=== PATIENT | female | born 1965 | race Caucasian/White ===

== ENCOUNTER 2018-12-01 17:52 | Inpatient (IN) | payer OTHER ==
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
[2018-12-01] MEDS ORDERED: SODIUM CHLORIDE 0.9% 500 ML INFUS.BAG IV ONE (20:02)
[2018-12-01 20:19] LABS: BASO % 1.2 % (0-2.0); EOS % 1.6 % (0-4.5); HEMATOCRIT 39.9 % (32.4-45.2); HEMOGLOBIN 14.3 GM/dL (10.7-15.3); LYMPH % 22.1 % (8-40); MCH 33.6 pg (25.7-33.7); MCHC 35.8 g/dl (32.0-36.0); MEAN CELL VOLUME 93.8 fl (80-96); MEAN PLT VOLUME 8.6 fl (7.5-11.1); MONO % 7.7 % (3.8-10.2); NEUT % 67.4 % (42.8-82.8); PLATELET COUNT 266 K/MM3 (134-434); RBC 4.26 M/mm3 (3.60-5.2); RDW 12.7 % (11.6-15.6); WHITE BLOOD COUNT 9.7 K/mm3 (4.0-10.0)
[2018-12-01 20:40] LABS: INR 0.97 (0.83-1.09); PROTHROMBIN TIME (PATIENT) 11.5 SEC (9.7-13.0)
[2018-12-01 20:42] LABS: ACTIVATED PTT 36.3 SECONDS (25.2-36.5)
[2018-12-01 21:50] LABS: ALK PHOS 75 U/L (45-117); ANION GAP 9 MMOL/L (8-16); BILIRUBIN,TOTAL 0.3 mg/dL (0.2-1); BLOOD UREA NITROGEN 12 mg/dL (7-18); CALCIUM 8.7 mg/dL (8.5-10.1); CHLORIDE 103 mmol/L (98-107); CO2 29 mmol/L (21-32); CREATININE 0.8 mg/dL (0.55-1.3); GLUCOSE,RANDOM 138 mg/dL (74-106); POTASSIUM 3.5 mmol/L (3.5-5.1); SGOT/AST 15 U/L (15-37); SGPT/ALT 22 U/L (13-61); SODIUM 142 mmol/L (136-145); TOT PROT 7.2 g/dl (6.4-8.2)
--- NOTE | 2018-12-02 00:30 | HP ---
Admitting History and Physical - Admission Chief Complaint: back pain History of Present Illness: this is a 53 y/o female patient with hx of HTN, DL, NIDDM, presented to the hospital with back pain that is reproducible with palpiation - patient stated that she has had the pain before but this is the worst she has ever had, she follows up with a doctor as an outpatient for which she was supposed to get more studies to evaluate the patient's pain. she stated that the pain is positional that she cannot move her arm without having having the pain. she feels the pain down her shoulder as well, she stated that she has swollen back recently. besides that the patient is doing well. denied any fever, chills, chest pain, WALLS, SOB, palpitations, any recent illness - diarrhea, cold or flu. translation was done with Kristyn Rudd RN - ED History Source: Patient, Family Member Limitations to Obtaining History: No Limitations - Smoking History Smoking history: Never smoked - Alcohol/Substance Use Hx Alcohol Use: No Home Medications - Allergies Allergies/Adverse Reactions: Allergies Allergy/AdvReac Type Severity Reaction Status Date / Time meperidine HCl [From Demerol] Allergy Verified 12/01/18 18:12 - Home Medications Home Medications: Ambulatory Orders Aspirin [ASA -] 81 mg PO DAILY 12/02/18 Benazepril/Hydrochlorothiazide [Benazepril-Hctz 20-25 mg Tab] 1 each PO DAILY Glipizide [Glucotrol -] 10 mg PO DAILY 12/02/18 Meclizine HCl [Antivert -] 25 mg PO PRN PRN 12/02/18 Metformin HCl [Glucophage] 1,000 mg PO BID 12/02/18 Rosuvastatin [Crestor -] 40 mg PO DAILY 12/02/18 Review of Systems - Review of Systems Constitutional: reports: No Symptoms Eyes: reports: No Symptoms HENT: reports: No Symptoms Neck: reports: No Symptoms Cardiovascular: reports: No Symptoms Respiratory: reports: No Symptoms Gastrointestinal: reports: No Symptoms Genitourinary: reports: No Symptoms Musculoskeletal: reports: Back Pain Integumentary: reports: No Symptoms Neurological: reports: No Symptoms Endocrine: reports: No Symptoms Hematology/Lymphatic: reports: No Symptoms Physical Examination Vital Signs: Vital Signs Temperature 98.5 F 12/01/18 18:13 Pulse Rate 111 H 12/01/18 18:13 Respiratory Rate 20 12/01/18 18:13 Blood Pressure 136/80 12/01/18 18:13 O2 Sat by Pulse Oximetry (%) 100 12/01/18 18:13 Constitutional: Yes: Well Nourished, No Distress, Calm, Obese Eyes: Yes: WNL, Conjunctiva Clear, EOM Intact HENT: Yes: WNL, Atraumatic, Normocephalic Neck: Yes: WNL, Supple, Trachea Midline Cardiovascular: Yes: WNL, Regular Rate and Rhythm, S1, S2 Respiratory: Yes: WNL, Regular, CTA Bilaterally Gastrointestinal: Yes: WNL, Normal Bowel Sounds, Soft Musculoskeletal: Yes: Back Pain, Muscle Pain, Other (tenderness to touch on the right shoulder) Extremities: Yes: WNL Edema: No Peripheral Pulses WNL: Yes Integumentary: Yes: WNL Neurological: Yes: WNL, Alert, Oriented ...Motor Strength: WNL Psychiatric: Yes: WNL, Alert, Oriented Labs: CBC, BMP 12/01/18 20:10 12/01/18 20:50 Imaging - Results X-ray: Image Reviewed Cat Scan: Image Reviewed EKG: Image Reviewed Problem List - Problems (1) Diabetes type 2, controlled Assessment/Plan: hold PO home medication start insulin sliding scale diabetic diet obtain A1c Code(s): E11.9 - TYPE 2 DIABETES MELLITUS WITHOUT COMPLICATIONS Qualifiers: Diabetes mellitus terminal press operator insulin use: without mcfp use Diabetes mellitus complication status: without complication Qualified Code(s): E11.9 - Type 2 diabetes mellitus without complications (2) Dyslipidemia (high LDL; low HDL) Assessment/Plan: c/w atorvastatin obtain Lipid profile Code(s): E78.5 - HYPERLIPIDEMIA, UNSPECIFIED (3) HTN (hypertension), benign Assessment/Plan: c/w aceI c/w HCTZ Code(s): I10 - ESSENTIAL (PRIMARY) HYPERTENSION (4) Back pain Assessment/Plan: chronic on acute back pain - admit to med surg pain control - toradol 30mg stat then toradol 10mg q8hrs tramadol 50mg q12hrs prn for sever pain neurology evaluation pantaprezole 40mg daily for GI prophylaxis Code(s): M54.9 - DORSALGIA, UNSPECIFIED Qualifiers: Back pain location: low back pain Chronicity: acute Back pain laterality : right Sciatica presence: with sciatica Sciatica laterality: sciatica of right side Qualified Code(s): M54.41 - Lumbago with sciatica, right side (5) Sinus tachycardia by electrocardiogram Assessment/Plan: can be 2/2 to pain vs dehydration will manage the pain if the HR is still not controlled consider starting the patient on metoprolol 50mg twice a day Code(s): R00.0 - TACHYCARDIA, UNSPECIFIED
[2018-12-02] MEDS ORDERED: MECLIZINE HCL 25 MG TABLET (FP) PO PRN (00:40)
[2018-12-02] MEDS ORDERED: HYDROCHLOROTHIAZIDE 25 MG TABLET (FP) PO ONE (00:43)
[2018-12-02] MEDS ORDERED: KETOROLAC TROMETHAMINE 15 MG/ML VIAL IVPB ONE (00:45)
[2018-12-02 01:54] VITALS: BMI 27.7
[2018-12-02] MEDS ORDERED: KETOROLAC TROMETHAMINE 10 MG TABLET PO SCH (06:00)
[2018-12-02] MEDS: INSULIN SLIDING SCALE (NOVOLOG) 1 VIAL SQ SCH ×3 (07:04→16:25)
[2018-12-02] MEDS ORDERED: PT OWN MED DRAWER 7, Y5N ONE (09:28)
[2018-12-02] MEDS: ASPIRIN 81 MG CHEWABLE TABLETS PO SCH (09:36)
[2018-12-02] MEDS: PANTOPRAZOLE 40 MG TABLET (FP) PO SCH (09:36)
[2018-12-02] MEDS: ENOXAPARIN NA (PORCINE) 40 MG/0.4 ML DISP.SYRIN SQ SCH (09:36)
[2018-12-02] MEDS ORDERED: traMADol HCL 50 MG TABLET PO SCH (10:00)
[2018-12-02] MEDS ORDERED: ACETAMINOPHEN 325 MG TABLET (FP) PO PRN (11:18)
[2018-12-02] MEDS ORDERED: traMADol HCL 50 MG TABLET PO PRN (11:19)
[2018-12-02] MEDS ORDERED: KETOROLAC TROMETHAMINE 10 MG TABLET PO PRN (11:19)
[2018-12-02] MEDS: RAMIPRIL 5 MG CAPSULE (FP) PO SCH (11:20)
--- NOTE | 2018-12-02 13:09 | EKG ---
Test Reason : Blood Pressure : / mmHG Vent. Rate : 105 BPM Atrial Rate : 105 BPM P-R Int : 172 ms QRS Dur : 078 ms QT Int : 348 ms P-R-T Axes : 050 055 043 degrees QTc Int : 459 ms SINUS TACHYCARDIA NO PREVIOUS ECGS AVAILABLE Confirmed by MASSIEL PEREZ MD ([id number]) on 12/02/2018 1:09:42 PM Referred By: Confirmed By:MASSIEL PEREZ MD
--- NOTE | 2018-12-02 13:20 | PN ---
Physical Exam: SUBJECTIVE: Patient seen and examined. Back pain is improving. She reports weakness in both legs without numbness. OBJECTIVE: Vital Signs Period Temp Pulse Resp BP Sys/Partida Pulse Ox Last 24 Hr 97.9 F-98.6 F 87-111 18-20 118-140/65-95 96-100 GENERAL: The patient is awake, alert, and fully oriented, in no acute distress. LUNGS: Breath sounds equal, clear to auscultation bilaterally, no wheezes, no crackles, no accessory muscle use. HEART: Regular rate and rhythm, S1, S2 without murmur, rub or gallop. ABDOMEN: Soft, nontender, nondistended, normoactive bowel sounds, no guarding, no rebound, no hepatosplenomegaly, no masses. EXTREMITIES: 2+ pulses, warm, well-perfused, no edema. BACK: No spinal, paraspinal tenderness. NEUROLOGICAL: Strength 5/5 in all extremities. Sensation intact. DTRs 2+. Laboratory Results - last 24 hr 12/01/18 12/01/18 12/01/18 20:10 20:10 20:10 WBC 9.7 RBC 4.26 Hgb 14.3 Hct 39.9 MCV 93.8 MCH 33.6 MCHC 35.8 RDW 12.7 Plt Count 266 MPV 8.6 Absolute Neuts (auto) 6.6 Neutrophils % 67.4 Lymphocytes % 22.1 Monocytes % 7.7 Eosinophils % 1.6 Basophils % 1.2 Nucleated RBC % 0 PT with INR 11.50 INR 0.97 PTT (Actin FS) 36.3 D-Dimer Sodium Cancelled Potassium Cancelled Chloride Cancelled Carbon Dioxide Cancelled Anion Gap Cancelled BUN Cancelled Creatinine Cancelled Creat Clearance w eGFR Cancelled POC Glucometer Random Glucose Cancelled Calcium Cancelled Total Bilirubin Cancelled AST Cancelled ALT Cancelled Alkaline Phosphatase Cancelled Creatine Kinase Cancelled Creatine Kinase Index CK-MB (CK-2) Troponin I Cancelled Total Protein Cancelled Albumin Cancelled 12/01/18 12/01/18 12/01/18 20:10 20:50 20:50 WBC RBC Hgb Hct MCV MCH MCHC RDW Plt Count MPV Absolute Neuts (auto) Neutrophils % Lymphocytes % Monocytes % Eosinophils % Basophils % Nucleated RBC % PT with INR INR PTT (Actin FS) D-Dimer Cancelled Sodium 142 Potassium 3.5 Chloride 103 Carbon Dioxide 29 Anion Gap 9 BUN 12 Creatinine 0.8 Creat Clearance w eGFR > 60 POC Glucometer Random Glucose 138 H Calcium 8.7 Total Bilirubin 0.3 AST 15 ALT 22 Alkaline Phosphatase 75 Creatine Kinase 262 H Creatine Kinase Index 0.3 CK-MB (CK-2) < 1.0 Troponin I < 0.02 Total Protein 7.2 Albumin 4.0 12/01/18 12/02/18 12/02/18 20:50 06:58 11:23 WBC RBC Hgb Hct MCV MCH MCHC RDW Plt Count MPV Absolute Neuts (auto) Neutrophils % Lymphocytes % Monocytes % Eosinophils % Basophils % Nucleated RBC % PT with INR INR PTT (Actin FS) D-Dimer 273 Sodium Potassium Chloride Carbon Dioxide Anion Gap BUN Creatinine Creat Clearance w eGFR POC Glucometer 120 148 Random Glucose Calcium Total Bilirubin AST ALT Alkaline Phosphatase Creatine Kinase Creatine Kinase Index CK-MB (CK-2) Troponin I Total Protein Albumin Active Medications Generic Name Dose Route Start Last Admin Trade Name Freq PRN Reason Stop Dose Admin Acetaminophen 650 mg 12/02/18 11:18 Tylenol - PO Q4H PRN PAIN LEVEL 1 - 3 Aspirin 81 mg 12/02/18 10:00 12/02/18 09:36 Asa - PO 81 mg DAILY EASTON Administration Enoxaparin Sodium 40 mg 12/02/18 10:00 12/02/18 09:36 Lovenox - SQ 40 mg DAILY EASTON Administration Insulin Aspart 1 vial 12/02/18 07:00 12/02/18 11:25 Novolog Vial Sliding Scale - SQ Not Given TIDAC [facility] Protocol Ketorolac Tromethamine 10 mg 12/02/18 11:19 Toradol PO 12/07/18 11:59 Q6HPO PRN PAIN LEVEL 4 - 6 Meclizine HCl 25 mg 12/02/18 00:40 Antivert - PO PRN PRN VERTIGO Pantoprazole Sodium 40 mg 12/02/18 10:00 12/02/18 09:36 Protonix - PO 40 mg DAILY EASTON Administration Ramipril 5 mg 12/02/18 10:00 12/02/18 11:20 Altace - PO 5 mg DAILY EASTON Administration Rosuvastatin Calcium 40 mg 12/02/18 22:00 Crestor - PO HS EASTON Tramadol HCl 50 mg 12/02/18 11:19 Ultram - PO Q6H PRN PAIN LEVEL 7 - 10 ASSESSMENT/PLAN: This is a 53 year old woman with a history of HTN, hyperlipidemia, type 2 DM, chronic back pain who presented to the ED with increased back pain. 1. Acute on chronic back pain with leg weakness, elevated CK - Pain is improving - Continue Toradol/Tramadol as needed - Repeat CK - Check ESR, C-RP, SANDHYA, RF - Physical therapy 2. HTN - Continue Altace, HCTZ 3. Hyperlipidemia - Continue Crestor 4. Type 2 DM - Metformin, glipizide held - Continue Novolog sliding scale 5. Moderate pericardial effusion on CT - Echocardiogram - Check SANDHYA, ESR, C-RP Visit type - Emergency Visit Emergency Visit: Yes ED Registration Date: 12/02/18 Care time: The patient presented to the Emergency Department on the above date and was hospitalized for further evaluation of their emergent condition. - New Patient This patient is new to me today: Yes Date on this admission: 12/02/18 - Critical Care Critical Care patient: No - Discharge Referral Referred to [facility] Med P.C.: No
[2018-12-02] MEDS: ROSUVASTATIN CA 20 MG TABLET (FP) PO SCH (21:44)
[2018-12-03] MEDS: INSULIN SLIDING SCALE (NOVOLOG) 1 VIAL SQ SCH ×3 (06:27→16:36)
[2018-12-03 09:06] LABS: BASO % 0.5 % (0-2.0); EOS % 3.6 % (0-4.5); HEMATOCRIT 36.6 % (32.4-45.2); HEMOGLOBIN 12.9 GM/dL (10.7-15.3); LYMPH % 27.9 % (8-40); MCH 32.8 pg (25.7-33.7); MCHC 35.3 g/dl (32.0-36.0); MEAN CELL VOLUME 93.1 fl (80-96); MEAN PLT VOLUME 8.7 fl (7.5-11.1); MONO % 8.5 % (3.8-10.2); NEUT % 59.5 % (42.8-82.8); PLATELET COUNT 243 K/MM3 (134-434); RBC 3.93 M/mm3 (3.60-5.2); RDW 12.6 % (11.6-15.6); WHITE BLOOD COUNT 5.8 K/mm3 (4.0-10.0)
[2018-12-03 09:11] LABS: ALBUMIN 3.4 g/dl (3.4-5.0); ALK PHOS 67 U/L (45-117); ANION GAP 5 MMOL/L (8-16); BILIRUBIN,TOTAL 0.5 mg/dL (0.2-1); BLOOD UREA NITROGEN 11 mg/dL (7-18); CALCIUM 8.3 mg/dL (8.5-10.1); CHLORIDE 106 mmol/L (98-107); CO2 30 mmol/L (21-32); CREATININE 0.7 mg/dL (0.55-1.3); GLUCOSE,RANDOM 119 mg/dL (74-106); MAGNESIUM 2.1 mg/dL (1.8-2.4); PHOSPHOROUS 3.9 mg/dL (2.5-4.9); POTASSIUM 3.7 mmol/L (3.5-5.1); SGOT/AST 11 U/L (15-37); SGPT/ALT 17 U/L (13-61); SODIUM 142 mmol/L (136-145); TOT PROT 6.7 g/dl (6.4-8.2)
[2018-12-03] MEDS ORDERED: PT OWN MED DRAWER 7, Y5N ONE (09:13)
[2018-12-03] MEDS: HYDROCHLOROTHIAZIDE 25 MG TABLET (FP) PO SCH (09:25)
[2018-12-03] MEDS: PANTOPRAZOLE 40 MG TABLET (FP) PO SCH (09:25)
[2018-12-03] MEDS: ASPIRIN 81 MG CHEWABLE TABLETS PO SCH (09:25)
[2018-12-03] MEDS: ENOXAPARIN NA (PORCINE) 40 MG/0.4 ML DISP.SYRIN SQ SCH (09:25)
[2018-12-03] MEDS: RAMIPRIL 5 MG CAPSULE (FP) PO SCH (09:25)
[2018-12-03 10:23] LABS: INR 1.07 (0.83-1.09); PROTHROMBIN TIME (PATIENT) 12.6 SEC (9.7-13.0)
[2018-12-03 10:26] LABS: ACTIVATED PTT 31.8 SECONDS (25.2-36.5)
--- NOTE | 2018-12-03 11:26 | PN ---
Physical Exam: SUBJECTIVE: Patient seen and examined this AM. Limited by language barrier but able to briefly interview patient who states that her pain is much better and fluctuating between a 2 and a 3 out of 10. OBJECTIVE: Vital Signs Period Temp Pulse Resp BP Sys/Partida Pulse Ox Last 24 Hr 97.5 F-98.4 F 84-109 18-20 103-129/63-85 98 GENERAL: A&O, no acute distress HEAD: Normocephalic, atraumatic. EYES: no scleral icterus EARS, NOSE, THROAT: oropharynx clear without exudates. Moist mucous membranes. LUNGS: CTA b/l, no crackles or wheezes HEART: Regular rate and rhythm, normal S1 and S2 without murmur ABDOMEN: Soft, nontender to palpation, normoactive bowel sounds MUSCULOSKELETAL: Minimal tenderness to palpation in lower back musculature EXTREMITIES: warm, well-perfused. No peripheral edema. Laboratory Results - last 24 hr 12/02/18 12/02/18 12/03/18 11:23 16:23 06:00 WBC 5.8 RBC 3.93 Hgb 12.9 Hct 36.6 MCV 93.1 MCH 32.8 MCHC 35.3 RDW 12.6 Plt Count 243 MPV 8.7 Absolute Neuts (auto) 3.5 Neutrophils % 59.5 Lymphocytes % 27.9 D Monocytes % 8.5 Eosinophils % 3.6 D Basophils % 0.5 Nucleated RBC % 0 ESR PT with INR INR PTT (Actin FS) Sodium Potassium Chloride Carbon Dioxide Anion Gap BUN Creatinine Creat Clearance w eGFR POC Glucometer 148 148 Random Glucose Calcium Phosphorus Magnesium Total Bilirubin AST ALT Alkaline Phosphatase Creatine Kinase C-Reactive Protein Total Protein Albumin 12/03/18 12/03/18 12/03/18 06:00 06:00 06:26 WBC RBC Hgb Hct MCV MCH MCHC RDW Plt Count MPV Absolute Neuts (auto) Neutrophils % Lymphocytes % Monocytes % Eosinophils % Basophils % Nucleated RBC % ESR 12 PT with INR INR PTT (Actin FS) Sodium 142 Potassium 3.7 Chloride 106 Carbon Dioxide 30 Anion Gap 5 L BUN 11 Creatinine 0.7 Creat Clearance w eGFR > 60 POC Glucometer 128 Random Glucose 119 H Calcium 8.3 L Phosphorus 3.9 Magnesium 2.1 Total Bilirubin 0.5 AST 11 L ALT 17 Alkaline Phosphatase 67 Creatine Kinase 100 C-Reactive Protein 0.4 H Total Protein 6.7 Albumin 3.4 12/03/18 09:30 WBC RBC Hgb Hct MCV MCH MCHC RDW Plt Count MPV Absolute Neuts (auto) Neutrophils % Lymphocytes % Monocytes % Eosinophils % Basophils % Nucleated RBC % ESR PT with INR 12.60 INR 1.07 PTT (Actin FS) 31.8 Sodium Potassium Chloride Carbon Dioxide Anion Gap BUN Creatinine Creat Clearance w eGFR POC Glucometer Random Glucose Calcium Phosphorus Magnesium Total Bilirubin AST ALT Alkaline Phosphatase Creatine Kinase C-Reactive Protein Total Protein Albumin Active Medications Generic Name Dose Route Start Last Admin Trade Name Freq PRN Reason Stop Dose Admin Acetaminophen 650 mg 12/02/18 11:18 12/03/18 08:18 Tylenol - PO 650 mg Q4H PRN Administration PAIN LEVEL 1 - 3 Aspirin 81 mg 12/02/18 10:00 12/03/18 09:25 Asa - PO 81 mg DAILY EASTON Administration Enoxaparin Sodium 40 mg 12/02/18 10:00 12/03/18 09:25 Lovenox - SQ 40 mg DAILY EASTON Administration Hydrochlorothiazide 25 mg 12/03/18 10:00 12/03/18 09:25 Hctz - PO 25 mg DAILY EASTON Administration Insulin Aspart 1 vial 12/02/18 07:00 12/03/18 06:27 Novolog Vial Sliding Scale - SQ Not Given TIDAC [facility] Protocol Ketorolac Tromethamine 10 mg 12/02/18 11:19 Toradol PO 12/07/18 11:59 Q6HPO PRN PAIN LEVEL 4 - 6 Meclizine HCl 25 mg 12/02/18 00:40 Antivert - PO PRN PRN VERTIGO Pantoprazole Sodium 40 mg 12/02/18 10:00 12/03/18 09:25 Protonix - PO 40 mg DAILY EASTON Administration Ramipril 5 mg 12/02/18 10:00 12/03/18 09:25 Altace - PO 5 mg DAILY EASTON Administration Rosuvastatin Calcium 40 mg 12/02/18 22:00 12/02/18 21:44 Crestor - PO 40 mg HS EASTON Administration Tramadol HCl 50 mg 12/02/18 11:19 Ultram - PO Q6H PRN PAIN LEVEL 7 - 10 ASSESSMENT/PLAN: 53 year old woman with a history of HTN, hyperlipidemia, type 2 DM, chronic back pain who presented to the ED with increased back pain. Acute on Chronic Back Pain -Improved -Pain control with Toradol and Ultram, pt currently not requiring -Physical Therapy Eval -ESR, CRP okay -SANDHYA, RF pending Moderate Pericardial Effusion -Incidentally noted on CT chest and CTA -pending ECHO in AM NIDDM -Hold home metformin -BGMs ACHS -Insulin sliding scale HLD -Crestor 40 mg PO HS HTN -Ramipril 5 mg PO Daily -HCTZ 25 mg PO Daily DVT Prophylaxis -Lovenox 40 mg SQ Daily FEN -Fluids: none -Electrolytes: No electrolyte abnormalities, BMP in AM -Nutrition: Diabetic/Na controlled diet Disposition Med/Surg Visit type - Emergency Visit Emergency Visit: Yes ED Registration Date: 12/02/18 Care time: The patient presented to the Emergency Department on the above date and was hospitalized for further evaluation of their emergent condition. - New Patient This patient is new to me today: Yes Date on this admission: 12/03/18 - Critical Care Critical Care patient: No
--- NOTE | 2018-12-03 19:03 | PN ---
Teaching Attending Note Name of Resident: Karri Cohen ATTENDING PHYSICIAN STATEMENT I saw and evaluated the patient. I reviewed the resident's note and discussed the case with the resident. I agree with the resident's findings and plan as documented. SUBJECTIVE: Patient says pain is much better. She denies CP, SOB. OBJECTIVE: Vital Signs Period Temp Pulse Resp BP Sys/Partida Pulse Ox Last 24 Hr 97.8 F-98.1 F 84-91 18-20 103-138/58-85 98-100 HEART: S1S2, RRR LUNGS: Clear ABDOMEN: Soft, non-tender, non-distended, normal BS BACK: No tenderness EXTREMITIES: No edema Laboratory Results - last 24 hr 12/03/18 12/03/18 12/03/18 06:00 06:00 06:00 WBC 5.8 RBC 3.93 Hgb 12.9 Hct 36.6 MCV 93.1 MCH 32.8 MCHC 35.3 RDW 12.6 Plt Count 243 MPV 8.7 Absolute Neuts (auto) 3.5 Neutrophils % 59.5 Lymphocytes % 27.9 D Monocytes % 8.5 Eosinophils % 3.6 D Basophils % 0.5 Nucleated RBC % 0 ESR 12 PT with INR INR PTT (Actin FS) Sodium 142 Potassium 3.7 Chloride 106 Carbon Dioxide 30 Anion Gap 5 L BUN 11 Creatinine 0.7 Creat Clearance w eGFR > 60 POC Glucometer Random Glucose 119 H Calcium 8.3 L Phosphorus 3.9 Magnesium 2.1 Total Bilirubin 0.5 AST 11 L ALT 17 Alkaline Phosphatase 67 Creatine Kinase 100 C-Reactive Protein 0.4 H Total Protein 6.7 Albumin 3.4 12/03/18 12/03/18 12/03/18 06:26 09:30 12:05 WBC RBC Hgb Hct MCV MCH MCHC RDW Plt Count MPV Absolute Neuts (auto) Neutrophils % Lymphocytes % Monocytes % Eosinophils % Basophils % Nucleated RBC % ESR PT with INR 12.60 INR 1.07 PTT (Actin FS) 31.8 Sodium Potassium Chloride Carbon Dioxide Anion Gap BUN Creatinine Creat Clearance w eGFR POC Glucometer 128 119 Random Glucose Calcium Phosphorus Magnesium Total Bilirubin AST ALT Alkaline Phosphatase Creatine Kinase C-Reactive Protein Total Protein Albumin 12/03/18 16:35 WBC RBC Hgb Hct MCV MCH MCHC RDW Plt Count MPV Absolute Neuts (auto) Neutrophils % Lymphocytes % Monocytes % Eosinophils % Basophils % Nucleated RBC % ESR PT with INR INR PTT (Actin FS) Sodium Potassium Chloride Carbon Dioxide Anion Gap BUN Creatinine Creat Clearance w eGFR POC Glucometer 145 Random Glucose Calcium Phosphorus Magnesium Total Bilirubin AST ALT Alkaline Phosphatase Creatine Kinase C-Reactive Protein Total Protein Albumin Current Medications Generic Name Dose Route Start Last Admin Trade Name Freq PRN Reason Stop Dose Admin Acetaminophen 650 mg 12/02/18 11:18 12/03/18 08:18 Tylenol - PO 650 mg Q4H PRN Administration PAIN LEVEL 1 - 3 Aspirin 81 mg 12/02/18 10:00 12/03/18 09:25 Asa - PO 81 mg DAILY [facility] Administration Enoxaparin Sodium 40 mg 12/02/18 10:00 12/03/18 09:25 Lovenox - SQ 40 mg DAILY [facility] Administration Hydrochlorothiazide 25 mg 12/03/18 10:00 12/03/18 09:25 Hctz - PO 25 mg DAILY [facility] Administration Insulin Aspart 1 vial 12/02/18 07:00 12/03/18 16:36 Novolog Vial Sliding Scale - SQ Not Given TIDAC [facility] Protocol Ketorolac Tromethamine 10 mg 12/02/18 11:19 Toradol PO 12/07/18 11:59 Q6HPO PRN PAIN LEVEL 4 - 6 Meclizine HCl 25 mg 12/02/18 00:40 Antivert - PO PRN PRN VERTIGO Pantoprazole Sodium 40 mg 12/02/18 10:00 12/03/18 09:25 Protonix - PO 40 mg DAILY [facility] Administration Ramipril 5 mg 12/02/18 10:00 12/03/18 09:25 Altace - PO 5 mg DAILY [facility] Administration Rosuvastatin Calcium 40 mg 12/02/18 22:00 12/02/18 21:44 Crestor - PO 40 mg HS [facility] Administration Tramadol HCl 50 mg 12/02/18 11:19 Ultram - PO Q6H PRN PAIN LEVEL 7 - 10 ASSESSMENT AND PLAN: This is a 53 year old woman with a history of HTN, hyperlipidemia, type 2 DM, chronic back pain who presented to the ED with increased back pain. 1. Acute on chronic back pain with leg weakness, elevated CK - Pain is improving - Continue Toradol/Tramadol as needed - Repeat CK improved - Check ESR 12, C-RP 0.4 - SANDHYA, RF pending - Physical therapy 2. HTN - Continue Altace, HCTZ 3. Hyperlipidemia - Continue Crestor 4. Type 2 DM - Metformin, glipizide held - Continue Novolog sliding scale 5. Moderate pericardial effusion on CT - Echocardiogram pending - ESR 12, C-RP 0.4 - SANDHYA pending
[2018-12-03] MEDS: ROSUVASTATIN CA 20 MG TABLET (FP) PO SCH (22:22)
[2018-12-04] MEDS: INSULIN SLIDING SCALE (NOVOLOG) 1 VIAL SQ SCH ×3 (06:16→17:49)
--- NOTE | 2018-12-04 08:06 | PN ---
Teaching Attending Note Name of Resident: Karri Cohen ATTENDING PHYSICIAN STATEMENT I saw and evaluated the patient. I reviewed the resident's note and discussed the case with the resident. I agree with the resident's findings and plan as documented. SUBJECTIVE: c/o mild interscapular pain OBJECTIVE: Vital Signs Temperature 97.9 F 12/04/18 06:01 Pulse Rate 86 12/04/18 06:01 Respiratory Rate 18 12/04/18 06:01 Blood Pressure 128/75 12/04/18 06:01 O2 Sat by Pulse Oximetry (%) 98 12/03/18 21:00 Young f comfortable not in distress HEENT: Mm moist, no anemia, PERRLA EOMI NECK: No JVd No bruit CHEST: CTA B/L CVS; S1S2 R ABD; No distention, non frank EXT: No edema feet POT OPERATOR: AOX3 non focal LABS: CBC, BMP 12/03/18 06:00 12/03/18 06:00 CRP0.4 ESR 12 ECHO: smal effusion TSH Pending ASSESSMENT AND PLAN:53 year old woman with a history of HTN, hyperlipidemia, type 2 DM, chronic back pain who presented to the ED with increased back pain. Ct shows moderate Pericardial effusion MEDS: Active Medications Acetaminophen (Tylenol -) 650 mg PO Q4H PRN PRN Reason: PAIN LEVEL 1 - 3 Last Admin: 12/03/18 08:18 Dose: 650 mg Aspirin (Asa -) 81 mg PO DAILY [facility] Last Admin: 12/03/18 09:25 Dose: 81 mg Enoxaparin Sodium (Lovenox -) 40 mg SQ DAILY [facility] Last Admin: 12/03/18 09:25 Dose: 40 mg Hydrochlorothiazide (Hctz -) 25 mg PO DAILY [facility] Last Admin: 12/03/18 09:25 Dose: 25 mg Insulin Aspart (Novolog Vial Sliding Scale -) 1 vial SQ TIDAC [facility]; Protocol Last Admin: 12/04/18 06:16 Dose: Not Given Ketorolac Tromethamine (Toradol) 10 mg PO Q6HPO PRN PRN Reason: PAIN LEVEL 4 - 6 Stop: 12/07/18 11:59 Meclizine HCl (Antivert -) 25 mg PO PRN PRN PRN Reason: VERTIGO Pantoprazole Sodium (Protonix -) 40 mg PO DAILY [facility] Last Admin: 12/03/18 09:25 Dose: 40 mg Ramipril (Altace -) 5 mg PO DAILY [facility] Last Admin: 12/03/18 09:25 Dose: 5 mg Rosuvastatin Calcium (Crestor -) 40 mg PO HS [facility] Last Admin: 12/03/18 22:22 Dose: 40 mg Tramadol HCl (Ultram -) 50 mg PO Q6H PRN PRN Reason: PAIN LEVEL 7 - 10 Plan; small effusion inflamtory markers are -ve, hemodynamically stable Plan; Can be Dc Home on Motrin for back pain Rest cont all home meds. Discussed with the team.
[2018-12-04] MEDS: PANTOPRAZOLE 40 MG TABLET (FP) PO SCH (09:10)
[2018-12-04] MEDS: HYDROCHLOROTHIAZIDE 25 MG TABLET (FP) PO SCH (09:10)
[2018-12-04] MEDS: ASPIRIN 81 MG CHEWABLE TABLETS PO SCH (09:10)
[2018-12-04] MEDS: RAMIPRIL 5 MG CAPSULE (FP) PO SCH (09:13)
[2018-12-04 09:15] VITALS: TEMP 98.1
[2018-12-04] MEDS: ENOXAPARIN NA (PORCINE) 40 MG/0.4 ML DISP.SYRIN SQ SCH (12:15)
--- NOTE | 2018-12-04 13:04 | ECHO ---
Name: ENOCH FREY Exam:Adult Echocardiogram Study Date: 12/04/2018 11:39 AM Age: 53 yrs Reason For Study: Pericardial Effusion Height: 64 in Weight: 161 lb BSA: 1.8 m2 MMode/2D Measurements & Calculations IVSd: 0.73 cm Ao root diam: 2.5 cm LVIDd: 4.5 cm LA dimension: 3.0 cm LVIDs: 2.9 cm LVPWd: 0.68 cm EDV(Teich): 91.5 ml TAPSE: 2.0 cm ESV(Teich): 32.6 ml Doppler Measurements & Calculations MV E max andrew: 54.2 cm/sec Ao V2 max: 126.4 cm/sec MV A max andrew: 56.4 cm/sec Ao max P.4 mmHg MV E/A: 0.96 Ao V2 mean: 83.6 cm/sec MV dec time: 0.19 sec Ao mean P.2 mmHg Ao V2 VTI: 23.0 cm LV V1 max P.4 mmHg Med Peak E' Andrew: 4.6 cm/sec LV V1 mean P.4 mmHg Med E/e': 11.8 LV V1 max: 91.9 cm/sec Lat Peak E' Andrew: 7.2 cm/sec LV V1 mean: 55.7 cm/sec Lat E/e': 7.5 LV V1 VTI: 16.7 cm Procedure A complete two-dimensional transthoracic echocardiogram was performed (2D, M-mode, Doppler and color flow Doppler). Left Ventricle The left ventricle is normal in size. Left ventricular systolic function is normal. Ejection Fraction = 60- 65%. Grade I diastolic dysfunction, (abnormal relaxation pattern). Ratio E/E'= 12. No regional wall m otion abnormalities noted. Right Ventricle The right ventricle is normal size. The right ventricular systolic function is normal. RV systolic TD I is 11 cm/s. Atria The left atrial size is normal. Right atrial size is normal. Mitral Valve The mitral valve is normal in structure and function. There is no mitral regurgitation noted. Tricuspid Valve The tricuspid valve is normal in structure and function. There is mild tricuspid regurgitation. Aortic Valve The aortic valve is normal in structure and function. No aortic regurgitation is present. Pulmonic Valve The pulmonic valve is not well visualized. Great Vessels The aortic root is normal size. Pericardium/Pleura Small pericardial effusion (<1cm). Interpretation Summary The left ventricle is normal in size. Left ventricular systolic function is normal. No regional wall motion abnormalities noted. Ejection Fraction = 60-65%. Grade I diastolic dysfunction, (abnormal relaxation pattern). Ratio E/E'= 12 The right ventricular systolic function is normal. The left atrial size is normal. Right atrial size is normal. There is mild tricuspid regurgitation. Small pericardial effusion (<1cm) Previous study is not available for comparison Stevenson Baumann MD 12/04/2018 01:04 PM
[2018-12-04 14:09] VITALS: BP 139/87; PULSE 97
--- NOTE | 2018-12-04 15:14 | DS ---
Physical Exam: SUBJECTIVE: Patient seen and examined this morning. She states she feels well and is ready to go home if possible. OBJECTIVE: Vital Signs Period Temp Pulse Resp BP Sys/Partida Pulse Ox Last 24 Hr 97.9 F-98.1 F 84-98 18-20 123-151/68-91 98-98 PHYSICAL EXAM GENERAL: A&O, no acute distress HEAD: Normocephalic, atraumatic. EYES: no scleral icterus EARS, NOSE, THROAT: oropharynx clear without exudates. Moist mucous membranes. LUNGS: CTA b/l, no crackles or wheezes HEART: Regular rate and rhythm, normal S1 and S2 without murmur ABDOMEN: Soft, nontender to palpation, normoactive bowel sounds MUSCULOSKELETAL: Minimal tenderness to palpation in lower back musculature EXTREMITIES: warm, well-perfused. No peripheral edema. LABS Laboratory Results - last 24 hr 12/03/18 12/03/18 12/04/18 06:00 16:35 06:16 POC Glucometer 145 119 Rheumatoid Arth Biomark < 10.0 12/04/18 11:07 POC Glucometer 144 Rheumatoid Arth Biomark HOSPITAL COURSE: Date of Admission:12/02/18 Date of Discharge: 12/04/18 HPI on Admission: this is a 53 y/o female patient with hx of HTN, DL, NIDDM, presented to the hospital with back pain that is reproducible with palpiation - patient stated that she has had the pain before but this is the worst she has ever had, she follows up with a doctor as an outpatient for which she was supposed to get more studies to evaluate the patient's pain. she stated that the pain is positional that she cannot move her arm without having having the pain. she feels the pain down her shoulder as well, she stated that she has swollen back recently. besides that the patient is doing well. denied any fever, chills, chest pain, WALLS, SOB, palpitations, any recent illness - diarrhea, cold or flu. Hospital Course: Imaging was performed which did not reveal any concerning acute fracture or cord compression. Her pain was controlled with minimal narcotics and improved to where she did not require any. She was incidentally noted to have a small pericardial effusion on CTA of her chest, which was followed up with an ECHO. ECHO revealed no other concerning findings and only revealed a small <1 cm pericardial effusion. She was deemed medically safe for discharge and instructed to follow up with her primary care physician within one week. Minutes to complete discharge: 35 Discharge Summary Reason For Visit: BACK PAIN PERICARDIAL EFFUSION TACHYCARDIA Current Active Problems Diabetes type 2, controlled (Acute) Dyslipidemia (high LDL; low HDL) (Acute) HTN (hypertension), benign (Acute) Sinus tachycardia by electrocardiogram (Acute) Condition: Stable - Instructions Diet, Activity, Other Instructions: You were admitted with significant back pain. Imaging was performed which did not reveal any concerning issues and your pain greatly improved. There was some fluid surrounding your heart on the CT scan of your chest however on the ultrasound of your heart, it was only a very small amount of fluid present which is not concerning. You should follow up with your primary care physician within one week of discharge from the hospital. If you do not have one, the information for the [facility] resident clinic has been included in your discharge packet. You should continue all of your home medications as they are prescribed prior to your hospital admission. If you have any concerning or worsening symptoms, you should be seen by your primary care physician or return to the emergency department. Referrals: Aidan Davalos MD [Staff Physician] - ON STAFF,NOT [Primary Care Provider] - Disposition: HOME - Home Medications Comprehensive Discharge Medication List: Ambulatory Orders Aspirin [ASA -] 81 mg PO DAILY 12/02/18 Benazepril/Hydrochlorothiazide [Benazepril-Hctz 20-25 mg Tab] 20 - 25 mg PO DAILY 12/02/18 Rosuvastatin [Crestor -] 40 mg PO HS 12/02/18 Alogliptin Andry/Metformin HCl [Alogliptin-Metformin 12.5-1000] 1 tablet PO DAILY 12/04/18 Amlodipine Besylate [Norvasc -] 5 mg PO DAILY 12/04/18 Glipizide Xl [Glucotrol Xl -] 10 mg PO DAILY 12/04/18 Meclizine HCl [Antivert -] 25 mg PO PRN PRN tablet 12/04/18 This patient is new to me today: No Emergency Visit: Yes ED Registration Date: 12/02/18 Care time: The patient presented to the Emergency Department on the above date and was hospitalized for further evaluation of their emergent condition. Critical Care patient: No - Discharge Referral Referred to [facility] Med P.C.: No
== END 2018-12-04 18:49 | disposition home or self-care (01) | DRG 347 ==
LOC: JER 17:52 → JERBED 12-02 00:28 → J7W 12-02 01:27
PROVIDERS: ADMIT Internal Medicine; ATTEND Internal Medicine
DX: M54.41 Lumbago with sciatica, right side (principal); I31.3 Pericardial effusion (noninflammatory); I10 Essential (primary) hypertension; E78.5 Hyperlipidemia, unspecified; E11.40 Type 2 diabetes mellitus with diabetic neuropathy, unspecified; R00.0 Tachycardia, unspecified
CPT/HCPCS: 36415; 71046-TC-FY; 71275-TC; 72128-TC; 74174-TC; 80053; 82550; 82553; 82962; 83735; 84100; 84484; 85025; 85379; 85610; 85651; 85730; 86038; 86140; 86431; 93005; 93010; 93306-TC; 97116-GP; 97161-GP; 99284-25

== ENCOUNTER 2019-01-09 18:54 | Emergency (ER) | payer OTHER ==
[2019-01-09 19:11] VITALS: BP 128/80; PULSE 104; TEMP 98.3; BMI 27.4
--- NOTE | 2019-01-09 20:12 | PDOC ---
Attending Attestation - [facility] HPI: 01/09/19 20:47 The patient is a 53 year old female with a significant past medical history of hypertension, hyperlipidemia, diabetes, and seizures who presents to the emergency department with arthritic vertebrae pain for about 1 month. The patient was previously worked up with negative findings. The patient reports that her back pain is worsened with deep breath . The patient denies taking any pain medication at home but reports that she came here to get pain medication. She reports that she has been on disability for about 7 years for diabetic neuropathy. She denies any recent trauma or injuries. She denies any other symptoms or complaints. - Physicial Exam PE: 01/09/19 20:47 Agree with resident exam BREAST EXAM: within normal limits <Esperanza Pendleton - Last Filed: 01/09/19 20:47> - Resident Resident Name: August Maldonado - ED Attending Attestation I have performed the following: I have examined & evaluated the patient, The case was reviewed & discussed with the resident, I agree w/resident's findings & plan - Medical Decision Making 01/09/19 20:51 53-year-old female with several weeks of reproducible right back pain Patient has had CTAs of the chest as well as CTs of the thoracic spine The pain on exam is completely reproducible Breast exam is within normal limits, performed at patient's request due to occasional radiation of pain She is planned for an outpatient MRI, she has also had a recent mammogram that was within normal limits Plan to discharge home with outpatient primary care follow-up Translation was provided by ED staff <Katarina Castañeda - Last Filed: 01/09/19 20:52> Attestations - Attestations 01/09/19 20:47 Documentation prepared by Esperanza Pendleton, acting as medical records specialist for Katarina Castañeda DO, MD. <Esperanza Pendleton - Last Filed: 01/09/19 20:47>
[2019-01-09] MEDS ORDERED: KETOROLAC TROMETHAMINE 60 MG/2 ML VIAL IM ONE (20:20)
[2019-01-09] MEDS ORDERED: ACETAMINOPHEN 325 MG TABLET (FP) PO ONE (20:20)
[2019-01-09] MEDS ORDERED: ACETAMINOPHEN 325 MG TABLET (FP) ONE (20:21)
[2019-01-09] MEDS ORDERED: KETOROLAC TROMETHAMINE 60 MG/2 ML VIAL ONE (20:22)
--- NOTE | 2019-01-09 20:33 | PDOC ---
History of Present Illness - General Chief Complaint: Pain, Acute Stated Complaint: Back Pain Time Seen by Provider: 01/09/19 20:08 History Source: Patient Exam Limitations: No Limitations - History of Present Illness Initial Comments: 01/09/19 20:24 The patient is a 53F with a PMH of HTN, HLD, DM who presents to the ER with complaints of back pain. The patient states that she was recently diagnosed with vertebral osteoarthritis. She states that her pain is exactly like her vertebral arthritis pain. She has not taken any pain medication. She denies any CP, SOB, fever, chills, nausea, vomiting, or pleurisy. Past History - Past Medical History Allergies/Adverse Reactions: Allergies Allergy/AdvReac Type Severity Reaction Status Date / Time meperidine HCl [From Demerol] Allergy Verified 01/09/19 19:07 Home Medications: Ambulatory Orders Aspirin [ASA -] 81 mg PO DAILY 12/02/18 Benazepril/Hydrochlorothiazide [Benazepril-Hctz 20-25 mg Tab] 20 - 25 mg PO DAILY 12/02/18 Rosuvastatin [Crestor -] 40 mg PO HS 12/02/18 Alogliptin Andry/Metformin HCl [Alogliptin-Metformin 12.5-1000] 1 tablet PO DAILY 12/04/18 Amlodipine Besylate [Norvasc -] 5 mg PO DAILY 12/04/18 Glipizide Xl [Glucotrol Xl -] 10 mg PO DAILY 12/04/18 Meclizine HCl [Antivert -] 25 mg PO PRN PRN tablet 12/04/18 Acetaminophen [Acetaminophen ER] 650 mg PO TID PRN #21 tablet.er 01/09/19 COPD: No Diabetes: Yes HTN: Yes Hypercholesterolemia: Yes Seizures: Yes - Surgical History Appendectomy: Yes Cholecystectomy: Yes Orthopedic Surgery: Yes - Suicide/Smoking/Psychosocial Hx Smoking History: Never smoked Hx Alcohol Use: No Drug/Substance Use Hx: No Substance Use Type: None Review of Systems - Review of Systems Able to Perform ROS?: Yes Comments:: 01/09/19 20:52 GENERAL/CONSTITUTIONAL: No fever or chills. No weakness. HEAD, EYES, EARS, NOSE AND THROAT: No change in vision. No ear pain or discharge. No sore throat. CARDIOVASCULAR: No chest pain, palpitations, or lightheadedness. RESPIRATORY: No cough, wheezing, shortness of breath, or hemoptysis. GASTROINTESTINAL: No nausea, vomiting, diarrhea, constipation, or abdominal pain. GENITOURINARY: No dysuria, frequency, hematuria, or change in urination. MUSCULOSKELETAL: + for back pain. No joint or muscle swelling or pain. No neck pain. SKIN: No rash or lesions. NEUROLOGIC: No headache, numbness, tingling, focal weakness, loss of consciousness, or change in strength/sensation. Is the patient limited [place] proficient: No *Physical Exam - Vital Signs Last Vital Signs Temp Pulse Resp BP Pulse Ox 98.3 F 104 H 18 128/80 99 01/09/19 19:10 01/09/19 19:10 01/09/19 19:10 01/09/19 19:10 01/09/19 19:10 - Physical Exam Comments: 01/09/19 20:52 GENERAL: Well developed, well nourished. Awake and alert. No acute distress. HEENT: Normocephalic, atraumatic. Hearing grossly normal. Moist mucous membranes. Sclera are non-icteric. NECK: Supple. Full ROM. No JVD. CARDIOVASCULAR: Regular rate and rhythm. No murmurs, rubs, or gallops. PULMONARY: No evidence of respiratory distress. Lungs clear to auscultation bilaterally. No wheezing, rales or rhonchi. ABDOMINAL: Soft. Non-tender. Non-distended. No rebound or guarding. GENITOURINARY: No CVA tenderness bilaterally. MUSCULOSKELETAL: Reproducible pain over T spine with TTP in midline and R paraspinal area. Normal range of motion at all joints. EXTREMITIES: No cyanosis. No clubbing. No edema. No calf tenderness or swelling. SKIN: Warm and dry. Normal capillary refill. No rashes. No jaundice. NEUROLOGICAL: Alert, awake, appropriate. Cranial nerves 2-12 grossly intact. Normal speech. Gait is normal without ataxia. PSYCHIATRIC: Cooperative. Good eye contact. Appropriate mood and affect. Moderate Sedation - Procedure Monitoring Vital Signs: Procedure Monitoring Vital Signs Temperature 98.3 F 01/09/19 19:10 Pulse Rate 104 H 01/09/19 19:10 Respiratory Rate 18 01/09/19 19:10 Blood Pressure 128/80 01/09/19 19:10 O2 Sat by Pulse Oximetry (%) 99 01/09/19 19:10 Medical Decision Making - Medical Decision Making 01/09/19 20:54 The patient is a 53F with a PMH of HTN, HLD, and DM who presents with reproducible back pain for which she had worked up extensively. Will give pain medication and send pt home with meds. I have encouraged PCP f/u and pain management f/u. *DC/Admit/Observation/Transfer Diagnosis at time of Disposition: Back pain Qualifiers: Back pain location: thoracic back pain Chronicity: chronic Back pain laterality : left Qualified Code(s): M54.6 - Pain in thoracic spine - Discharge Dispostion Disposition: HOME Condition at time of disposition: Stable Decision to Admit order: No - Referrals Referrals: Jolene Pastrana MD [Primary Care Provider] - Genaro Mccartney MD [Non Staff, Medical] - - Patient Instructions Printed Discharge Instructions: DI for Thoracic Back Pain Additional Instructions: Hurtado visita a la miller de emergencias no est completa hasta hurtado seguimiento con hurtado mdico de atencin primaria. Por favor ivet un seguimiento con hurtado mdico de atencin primaria en 1-2 cool. Regrese a la miller de emergencias si tiene signos o sntomas de dolor en el pecho , dificultad para respirar, fiebre incontrolable, escalofros, nuseas, vmitos , entumecimiento, hormigueo o debilidad en alguna parte de hurtado cuerpo, cambios en la visin o dificultad para hablar. Por favor, tome leobardo medicamentos segn lo prescrito. Regrese a la miller de emergencias si los sntomas persisten, empeoran o surgen nuevos sntomas. Your ER visit is not complete until your follow up with your primary care physician. Please follow up with your primary care physician in 1-2 days. Please return to the ER if you have any signs or symptoms of chest pain, shortness of breath, uncontrollable fever, chills, nausea, vomiting, numbness, tingling, or weakness in any part of your body, changes in vision, or slurred speech. Please take your medications as prescribed. Please return to the ER if symptoms persist, worsen, or new symptoms arise. - Post Discharge Activity
--- NOTE | 2019-01-10 12:43 | EKG ---
Test Reason : Blood Pressure : / mmHG Vent. Rate : 101 BPM Atrial Rate : 101 BPM P-R Int : 144 ms QRS Dur : 074 ms QT Int : 334 ms P-R-T Axes : 058 070 059 degrees QTc Int : 433 ms SINUS TACHYCARDIA OTHERWISE NORMAL ECG WHEN COMPARED WITH ECG OF 01-DEC-2018 21:32, NO SIGNIFICANT CHANGE WAS FOUND Confirmed by FIFI ESPINAL MD ([id number]) on 01/10/2019 12:43:28 PM Referred By: Confirmed By:FIFI ESPINAL MD
== END 2019-01-09 21:06 | disposition home or self-care (01) ==
LOC: JER 18:54
PROC: 3E0233Z Introduction of Anti-inflammatory into Muscle, Percutaneous Approach (ICD-10-PCS; principal; 2019-01-09)
DX: M54.6 Pain in thoracic spine (principal); I10 Essential (primary) hypertension; E11.9 Type 2 diabetes mellitus without complications; Z79.84 Long term (current) use of oral hypoglycemic drugs; E78.00 Pure hypercholesterolemia, unspecified; Z86.69 Personal history of other diseases of the nervous system and sense organs
CPT/HCPCS: 93005; 93010; 96372; 99282-25

== ENCOUNTER 2021-12-21 15:02 | Emergency (ER) | payer OTHER ==
[2021-12-21 15:07] VITALS: BP 157/88; PULSE 107; TEMP 98.2; BMI 32.0
[2021-12-21] MEDS ORDERED: KETOROLAC TROMETHAMINE 60 MG/2 ML VIAL IM ONE (17:14)
[2021-12-21] MEDS ORDERED: LIDOCAINE 5% TOPICAL PATCH TP ONE (17:14)
[2021-12-21] MEDS ORDERED: ACETAMINOPHEN 325 MG TABLET (FP) PO ONE (17:14)
[2021-12-21] MEDS ORDERED: METHOCARBAMOL 500 MG TABLET PO ONE (17:15)
[2021-12-21] MEDS ORDERED: KETOROLAC TROMETHAMINE 15 MG/ML VIAL ONE (17:56)
[2021-12-21] MEDS ORDERED: METHOCARBAMOL 500 MG TABLET ONE (17:56)
[2021-12-21] MEDS ORDERED: LIDOCAINE 5% TOPICAL PATCH ONE (17:56)
[2021-12-21] MEDS ORDERED: ACETAMINOPHEN 500 MG TABLET (FP) ONE (17:56)
[2021-12-21] MEDS ORDERED: LIDOCAINE PATCH REMOVAL MC SCH (22:00)
== END 2021-12-21 21:00 | disposition home or self-care (01) ==
LOC: JER 15:02 → JERFT 15:02
PROC: 3E0233Z Introduction of Anti-inflammatory into Muscle, Percutaneous Approach (ICD-10-PCS; principal; 2021-12-21)
DX: M25.551 Pain in right hip (principal)
CPT/HCPCS: 72100-TC-FY; 73502-TC-RT-FY; 99284-25

== ENCOUNTER 2022-12-08 15:29 | Emergency (ER) | payer OTHER ==
[2022-12-08 15:59] VITALS: BMI 31.2
[2022-12-08] MEDS ORDERED: SODIUM CHLORIDE 0.9% 500 ML INFUS.BAG IV ONE (17:02)
[2022-12-08] MEDS ORDERED: KETOROLAC TROMETHAMINE 30 MG/1 ML VIAL IVPUSH ONE (17:02)
[2022-12-08] MEDS ORDERED: KETOROLAC TROMETHAMINE 30 MG/1 ML VIAL ONE (17:34)
[2022-12-08] MEDS ORDERED: DEXAMETHASONE SOD PHOSPHATE 10 MG/1 ML VIAL ONE (17:37)
[2022-12-08] MEDS ORDERED: DEXAMETHASONE SOD PHOSPHATE 10 MG/1 ML VIAL IVPUSH ONE (17:37)
[2022-12-08 18:00] LABS: BASO % 0.3 % (0-2.0); EOS % 0.2 % (0-4.5); HEMATOCRIT 41.7 % (32.4-45.2); HEMOGLOBIN 14.2 GM/dL (10.7-15.3); LYMPH % 7.9 % (8-40); MCH 31.6 pg (25.7-33.7); MCHC 34.1 g/dl (32.0-36.0); MEAN CELL VOLUME 92.8 fl (80-96); MEAN PLT VOLUME 8.5 fl (7.5-11.1); MONO % 5.7 % (3.8-10.2); NEUT % 85.9 % (42.8-82.8); PLATELET COUNT 262 10^3/uL (134-434); RBC 4.49 M/mm3 (3.60-5.2); RDW 13.2 % (11.6-15.6); WHITE BLOOD COUNT 17.4 K/mm3 (4.0-10.0)
[2022-12-08 18:20] LABS: BLOOD UREA NITROGEN 8.5 mg/dL (7-18); CALCIUM 9.3 mg/dL (8.5-10.1)
[2022-12-08 18:24] LABS: CREATININE 0.8 mg/dL (0.55-1.3)
[2022-12-08 18:25] LABS: BILIRUBIN,TOTAL 0.6 mg/dL (0.2-1); TOT PROT 7.8 g/dl (6.4-8.2)
[2022-12-08] MEDS ORDERED: CEFTRIAXONE 1 GM/50 ML BAG ONE (23:30)
[2022-12-09 04:51] VITALS: BP 144/92; PULSE 97; RESP 17; TEMP 98.4
== END 2022-12-09 05:01 | disposition short-term general hospital (02) ==
LOC: JER 15:29
PROC: 3E03329 Introduction of Other Anti-infective into Peripheral Vein, Percutaneous Approach (ICD-10-PCS; principal; 2022-12-08)
PROC: 3E033GC Introduction of Other Therapeutic Substance into Peripheral Vein, Percutaneous Approach (ICD-10-PCS; 2022-12-08)
PROC: 3E0333Z Introduction of Anti-inflammatory into Peripheral Vein, Percutaneous Approach (ICD-10-PCS; 2022-12-08)
DX: J39.0 Retropharyngeal and parapharyngeal abscess (principal)
CPT/HCPCS: 0241U-QW; 36415; 70491-TC; 80053; 82962; 85025; 87651; 99285-25; J1100; Q9967

== ENCOUNTER 2023-06-23 14:54 | Emergency (ER) | payer OTHER ==
[2023-06-23 15:06] VITALS: BP 114/73; PULSE 104; RESP 20; TEMP 98.2; BMI 29.6
[2023-06-23] MEDS ORDERED: LIDOCAINE 5% TOPICAL PATCH TP ONE (16:43)
[2023-06-23] MEDS ORDERED: KETOROLAC TROMETHAMINE 30 MG/1 ML VIAL IM ONE (16:43)
[2023-06-23] MEDS ORDERED: METHOCARBAMOL 500 MG TABLET PO ONE (16:43)
[2023-06-23] MEDS ORDERED: METHOCARBAMOL 500 MG TABLET ONE (16:45)
[2023-06-23] MEDS ORDERED: LIDOCAINE 5% TOPICAL PATCH ONE (16:45)
[2023-06-23] MEDS ORDERED: KETOROLAC TROMETHAMINE 60 MG/2 ML VIAL ONE (16:45)
[2023-06-23] MEDS ORDERED: LIDOCAINE PATCH REMOVAL MC SCH (22:00)
== END 2023-06-23 18:11 | disposition home or self-care (01) ==
LOC: JERFT 14:54
PROC: 3E0233Z Introduction of Anti-inflammatory into Muscle, Percutaneous Approach (ICD-10-PCS; principal; 2023-06-23)
DX: M54.2 Cervicalgia (principal); S46.811A Strain of other muscles, fascia and tendons at shoulder and upper arm level, right arm, initial encounter; M62.838 Other muscle spasm; R53.1 Weakness; X58.XXXA Exposure to other specified factors, initial encounter
CPT/HCPCS: 99284-25

== ENCOUNTER 2024-01-12 13:39 | Emergency (ER) | payer OTHER ==
[2024-01-12 13:52] VITALS: RESP 20; BMI 31.2
[2024-01-12] MEDS ORDERED: LIDOCAINE 4% PATCH TP ONE (15:42)
[2024-01-12] MEDS ORDERED: ACETAMINOPHEN INJECTION 100 ML IVPB ONE (15:42)
[2024-01-12] MEDS ORDERED: METHOCARBAMOL 500 MG TABLET ONE (15:42)
[2024-01-12] MEDS ORDERED: ACETAMINOPHEN 325 MG TABLET (FP) ONE (16:11)
[2024-01-12] MEDS: METHOCARBAMOL 750 MG TAB PO ONE (16:18)
[2024-01-12] MEDS: LIDOCAINE 4% PATCH TP ONE (16:18)
[2024-01-12] MEDS: ACETAMINOPHEN 1000 MG/100 ML BAG IVPB ONE (16:18)
[2024-01-12] MEDS: ACETAMINOPHEN 500 MG TABLET (FP) PO ONE (16:19)
[2024-01-12] MEDS: ACETAMINOPHEN 325 MG TABLET (FP) PO ONE (16:21)
[2024-01-12 16:38] LABS: BASO % 0.8 % (0-2.0); EOS % 2.2 % (0-4.5); HEMATOCRIT 45.6 % (32.4-45.2); HEMOGLOBIN 15.4 GM/dL (10.7-15.3); LYMPH % 16.3 % (8-40); MCH 31.8 pg (25.7-33.7); MCHC 33.8 g/dl (32.0-36.0); MEAN PLT VOLUME 8.9 fl (7.5-11.1); MONO % 7.7 % (3.8-10.2); PLATELET COUNT 288 10^3/uL (134-434); RBC 4.84 M/mm3 (3.60-5.2); WHITE BLOOD COUNT 9.2 K/mm3 (4.0-10.0)
[2024-01-12] MEDS ORDERED: KETOROLAC TROMETHAMINE 15 MG/ML VIAL ONE (16:38)
[2024-01-12] MEDS: KETOROLAC TROMETHAMINE 15 MG/ML VIAL IVPUSH ONE (16:38)
[2024-01-12 16:54] LABS: CHLORIDE 99 mmol/L (98-107); SODIUM 135 mmol/L (136-145)
[2024-01-12 16:57] LABS: ALBUMIN 4.2 g/dl (3.4-5.0); BLOOD UREA NITROGEN 11.2 mg/dL (7-18); CO2 36 mmol/L (21-32); GLUCOSE,RANDOM 325 mg/dL (74-106); MAGNESIUM 2.4 mg/dL (1.8-2.4)
[2024-01-12 17:00] LABS: PHOSPHOROUS 4.5 mg/dL (2.5-4.9); SGOT/AST 52 U/L (15-37); SGPT/ALT 26 U/L (13-61)
[2024-01-12 17:01] LABS: BILIRUBIN,TOTAL 0.5 mg/dL (0.2-1)
[2024-01-12 17:02] LABS: TOT PROT 8.3 g/dl (6.4-8.2)
[2024-01-12 17:03] LABS: ALK PHOS 97 U/L (45-117)
[2024-01-12 17:05] LABS: ANION GAP 0 mmol/L (4-13); POTASSIUM 6.3 mmol/L (3.5-5.1)
[2024-01-12 18:54] LABS: POTASSIUM 4.3 mmol/L (3.5-5.1)
[2024-01-12 18:54] LABS: POTASSIUM 4.2 mmol/L (3.5-5.1)
[2024-01-12 18:55] LABS: CALCIUM 10.3 mg/dL (8.5-10.1)
[2024-01-12] MEDS ORDERED: KETAMINE HCL 200 MG/20 ML VIAL ONE (18:55)
[2024-01-12 18:56] LABS: CALCIUM 10.2 mg/dL (8.5-10.1)
[2024-01-12 18:57] LABS: BLOOD UREA NITROGEN 11.8 mg/dL (7-18)
[2024-01-12 18:59] LABS: CREATININE 0.9 mg/dL (0.55-1.3)
[2024-01-12 19:00] LABS: CREATININE 0.9 mg/dL (0.55-1.3)
[2024-01-12] MEDS: KETAMINE HCL 200 MG/20 ML VIAL IVPB ONE (19:04)
[2024-01-12 19:49] VITALS: BP 147/86; PULSE 90; TEMP 97.9
[2024-01-12] MEDS ORDERED: LIDOCAINE PATCH REMOVAL MC ONE (22:00)
== END 2024-01-12 20:42 | disposition home or self-care (01) ==
LOC: JER 13:39
PROC: 3E033NZ Introduction of Analgesics, Hypnotics, Sedatives into Peripheral Vein, Percutaneous Approach (ICD-10-PCS; principal; 2024-01-12)
PROC: 3E033GC Introduction of Other Therapeutic Substance into Peripheral Vein, Percutaneous Approach (ICD-10-PCS; 2024-01-12)
DX: M54.2 Cervicalgia (principal); M79.601 Pain in right arm; M79.602 Pain in left arm; G89.29 Other chronic pain; Z20.822 Contact with and (suspected) exposure to COVID-19
CPT/HCPCS: 0241U-QW; 36415; 80048; 80053; 83735; 84100; 84484; 85025; 93005; 93010; 99284-25

== ENCOUNTER 2024-01-15 10:54 | Emergency (ER) | payer OTHER ==
[2024-01-15 11:03] VITALS: BP 157/85; PULSE 100; RESP 18; TEMP 97.7; BMI 31.2
[2024-01-15] MEDS ORDERED: diazePAM 5 MG TABLET PO ONE (11:23)
[2024-01-15] MEDS ORDERED: KETOROLAC TROMETHAMINE 30 MG/1 ML VIAL IM ONE (11:23)
[2024-01-15] MEDS ORDERED: diazePAM 5 MG TABLET ONE (11:55)
[2024-01-15] MEDS ORDERED: KETOROLAC TROMETHAMINE 30 MG/1 ML VIAL ONE (11:55)
== END 2024-01-15 13:39 | disposition home or self-care (01) ==
LOC: JER 10:54 → JERFT 10:54
DX: M54.2 Cervicalgia (principal); M62.838 Other muscle spasm
CPT/HCPCS: 72125-TC; 99284-25

== ENCOUNTER 2024-06-07 17:10 | Observation (INO) | payer OTHER ==
[2024-06-07 17:25] VITALS: BP 105/74; PULSE 101; RESP 17; TEMP 98.5; BMI 28.9
[2024-06-07] MEDS ORDERED: ACETAMINOPHEN INJECTION 100 ML IVPB ONE ×2 (18:41→20:02)
[2024-06-07 19:24] LABS: PH,URINE 5.5 (5.0-8.0); URINE APPEARANCE CLEAR; URINE BILIRUBIN NEGATIVE (NEGATIVE); URINE COLOR YELLOW; URINE GLUCOSE (UA) 3+ (NEGATIVE); URINE KETONE NEGATIVE (NEGATIVE); URINE LEUK ESTERASE NEGATIVE (NEGATIVE); URINE NITRITE NEGATIVE (NEGATIVE); URINE PROTEIN NEGATIVE (NEGATIVE); URINE UROBILINOGEN 0.2 mg/dL (0.2-1.0)
[2024-06-07] MEDS: ACETAMINOPHEN 1000 MG/100 ML BAG IVPB ONE (20:06)
[2024-06-07] MEDS ORDERED: MAG HYDROX/AL HYDROX/SIMETH 30 ML UNIT-DOSE CUP ONE (20:11)
[2024-06-07] MEDS ORDERED: FAMOTIDINE 20 MG/50 ML IVPB 20 MG/50 ML MG IVPB ONE (20:11)
[2024-06-07] MEDS: FAMOTIDINE 20 MG/50 ML IVPB 20 MG/50 ML MG IVPB ONE (20:14)
[2024-06-07] MEDS: MAG HYDROX/AL HYDROX/SIMETH 30 ML UNIT-DOSE CUP PO ONE (20:14)
[2024-06-07 20:17] LABS: BASO % 0.6 % (0-2.0); EOS % 1.1 % (0-4.5); HEMATOCRIT 46.4 % (32.4-45.2); HEMOGLOBIN 15.8 GM/dL (10.7-15.3); LYMPH % 20.9 % (8-40); MCH 31.1 pg (25.7-33.7); MCHC 34.1 g/dl (32.0-36.0); MEAN CELL VOLUME 91.2 fl (80-96); MEAN PLT VOLUME 7.9 fl (7.5-11.1); MONO % 7.6 % (3.8-10.2); NEUT % 69.8 % (42.8-82.8); PLATELET COUNT 292 10^3/uL (134-434); RBC 5.09 M/mm3 (3.60-5.2); RDW 13.2 % (11.6-15.6); WHITE BLOOD COUNT 9.7 K/mm3 (4.0-10.0)
[2024-06-07 20:25] LABS: INR 0.96 (0.83-1.09); PROTHROMBIN TIME (PATIENT) 11.1 SEC (9.7-13.0)
[2024-06-07 20:27] LABS: ACTIVATED PTT 34.6 SECONDS (25.2-36.5)
[2024-06-07 20:37] LABS: POTASSIUM 3.5 mmol/L (3.5-5.1)
[2024-06-07 20:40] LABS: ALBUMIN 4.5 g/dl (3.4-5.0); CALCIUM 10.3 mg/dL (8.5-10.1)
[2024-06-07 20:43] LABS: CREATININE 0.9 mg/dL (0.55-1.3)
[2024-06-07 20:45] LABS: BILIRUBIN,TOTAL 0.5 mg/dL (0.2-1); TOT PROT 8.2 g/dl (6.4-8.2)
[2024-06-07] MEDS: SODIUM CHLORIDE 0.9% 500 ML INFUS.BAG IV ONE (23:13)
[2024-06-08] MEDS ORDERED: KETOROLAC TROMETHAMINE 15 MG/ML VIAL ONE (00:13)
[2024-06-08] MEDS: KETOROLAC TROMETHAMINE 15 MG/ML VIAL IVPUSH ONE (00:15)
== END 2024-06-08 02:39 | disposition left against medical advice (07) ==
LOC: JER 17:10 → JERBED 23:58
PROVIDERS: ADMIT Internal Medicine; ATTEND Internal Medicine
PROC: 3E033NZ Introduction of Analgesics, Hypnotics, Sedatives into Peripheral Vein, Percutaneous Approach (ICD-10-PCS; principal; 2024-06-07)
PROC: 3E033GC Introduction of Other Therapeutic Substance into Peripheral Vein, Percutaneous Approach (ICD-10-PCS; 2024-06-07)
PROC: 3E0333Z Introduction of Anti-inflammatory into Peripheral Vein, Percutaneous Approach (ICD-10-PCS; 2024-06-07)
PROC: 3E0337Z Introduction of Electrolytic and Water Balance Substance into Peripheral Vein, Percutaneous Approach (ICD-10-PCS; 2024-06-07)
DX: I31.39 Other pericardial effusion (noninflammatory) (principal); R10.13 Epigastric pain; R05.9 Cough, unspecified; R10.11 Right upper quadrant pain; E11.9 Type 2 diabetes mellitus without complications; I10 Essential (primary) hypertension; E78.00 Pure hypercholesterolemia, unspecified; R56.9 Unspecified convulsions; Z90.49 Acquired absence of other specified parts of digestive tract; M79.7 Fibromyalgia; Z88.8 Allergy status to other drugs, medicaments and biological substances
CPT/HCPCS: 0241U-QW; 36415; 71045-TC-FY; 72128-TC; 74177-TC; 80053; 81003; 83690; 84484; 85025; 85610; 85730; 87086; 93005; 93010; 96365; 96375; 99285-25; G0378; J0131; Q9967